=== PATIENT | female | born 1965 | race American Indian/Alaskan Native ===

== ENCOUNTER 2016-12-18 16:40 | Emergency (ER) | payer MEDICARE ==
--- NOTE | 2016-12-18 17:12 | Emergency Department Report ---
Chief Complaint: Dyspnea/Respdistress Stated Complaint: DIFF BREATHING / BILAT FEET/ANKLE SWELLING Time Seen by Provider: 12/18/16 17:08 - HPI History of Present Illness: 51 y/o female complain of shortness of breath x 1 week .pt state she been two hospital but been unable to stay due to long wait .pt complain of chest pain x 1 week .pt complain of n/v/d /.pt state she has fibromyalgia and unable to seat for prolong period of time. - ROS Review of Systems: per HPI - Exam Vital Signs: Vital Signs 12/18/16 16:50 Temperature 98.1 F Pulse Rate 90 Blood Pressure 162/83 O2 Sat by Pulse 100 Oximetry Physical Exam: GENERAL: The patient is well-developed and well-nourished.pt obese. Patient is in NAD. HENT: Normocephalic. Atraumatic. Patient has moist mucous membranes. Throat: No erythema, swelling or exudates. Ears:Tympanic membranes pearly ivory ,intact , and free of exudate and erythema . EYES: Extraocular motions are intact, PERRL NECK: Supple. No meningitic signs are noted. There is no adenopathy noted. CHEST/LUNGS: Clear to auscultation bilaterally. No wheezing, rales or rhonchi noted. There is no respiratory distress noted. HEART/CARDIOVASCULAR: Regular rate and rhythm. Normal S1 S2. No murmurs, rubs , clicks, or gallops. ABDOMEN: Abdomen is soft, nontender.. Bowel sounds normoactive. There is no abdominal distention. Negative rebound tenderness. : Deferred. SKIN: There is no rash. There is no edema. There is no diaphoresis.Normal skin turgor NEURO: The patient is A&Ox3. The patient has no focal neurologic deficits. MUSCULOSKELETAL: There is no tenderness or deformity. There is no limitation range of motion. posture erect.Spine aligned,no deformities. PSYCH: Pt has appropriate mood and affect. MSE screening note: Focused history and physical exam performed. Due to findings the following was ordered: ED Disposition for MSE Condition: Stable
[2016-12-18 17:59] LABS: Basophils % (Auto) 0.7 % (0.0-1.8); Eosinophils % (Auto) 0.8 % (0.0-4.3); Hematocrit 41.8 % (30.3-42.9); Hemoglobin 13.8 gm/dl (10.1-14.3); Mean Corpuscular HGB Conc 33 % (30-34); Mean Corpuscular Hemoglobin 28 pg (28-32); Mean Corpuscular Volume 86 fl (79-97); Platelet Count 308 K/mm3 (140-440); Red Blood Count 4.88 M/mm3 (3.65-5.03); Red Cell Distribution Width 15.1 % (13.2-15.2); White Blood Count 12.4 K/mm3 (4.5-11.0)
[2016-12-18 18:09] LABS: INR 1.08 (0.87-1.13); Partial Thromboplastin Time 26.9 Sec. (24.2-36.6)
[2016-12-18 18:11] LABS: Anion Gap 17 mmol/L; BUN/Creatinine Ratio 17.14; Blood Urea Nitrogen 12 mg/dL (7-17); Calcium 9.2 mg/dL (8.4-10.2); Carbon Dioxide 29 mmol/L (22-30); Chloride 99.1 mmol/L (98-107); Glucose 76 mg/dL (65-100); Potassium 3.5 mmol/L (3.6-5.0); Sodium 142 mmol/L (137-145)
[2016-12-18 18:14] LABS: Creatine Kinase 224 units/L (30-135); Creatine Kinase MB 2.3 ng/mL (0.0-4.0)
--- NOTE | 2016-12-18 20:33 | XRay Report ---
FINAL REPORT PROCEDURE: Chest. TECHNIQUE: Frontal and lateral views. HISTORY: Dyspnea. COMPARISON: No prior studies are available for comparison. FINDINGS: The heart and mediastinum appear normal. There is mild tortuosity of the thoracic aorta. The lungs are clear and well expanded. There are no pleural effusions. The soft tissues and regional skeleton are unremarkable. IMPRESSION: No evidence of acute disease.
[2016-12-18] MEDS ORDERED: PERCOCET 5/325 PO ONE (23:35)
--- NOTE | 2016-12-18 23:56 | Emergency Department Report ---
ED Shortness of Breath HPI - General Chief Complaint: Dyspnea/Respdistress Stated Complaint: DIFF BREATHING / BILAT FEET/ANKLE SWELLING Time Seen by Provider: 12/18/16 23:17 Source: patient Mode of arrival: Ambulatory Limitations: No Limitations - History of Present Illness Initial Comments: 51-year-old obese female with a past medical history of fibromyalgia, asthma, diabetes, and hypertension presents to the hospital complaints of cough and shortness of breath for the past 2 weeks. Patient complains of cough but is primarily dry and occasionally productive of white sputum. She reports intermittent episodes of wheezing similar to bronchitis infection the past. She is using a old inhaler with some mild improvement. Dyspnea worse when supine and patient wakes up in the middle night short of breath and her family reports that she seems to start breathing at nighttime. Patient only walk several feet before she feels short of breath and needs to sit down. She complains of intermittent pain across her chest that is aching and sore. Pain with palpation, movement, and cough. No reports of fever. Patient states she has gained 60 pounds in the last 6 months and reports swelling to lower extremities. Patient has attempted to be seen at 3-4 ED since symptom onset but left due to weight. She saw a primary care doctor as well recommended that she return to the ER for evaluation. Patient states that a sleep study has been recommended to her in the past but she never followed up to obtain one. She denies isolated calf tenderness, recent travel, or history of PE/DVT. - Related Data Previous Rx's Medication Instructions Recorded Last Taken Type ALBUTEROL Inhaler [ProAir HFA 2 puff IH QID PRN #1 inha 12/19/16 Unknown Rx Inhaler] ALPRAZolam [Xanax TAB] 1 mg PO BID PRN #14 tablet 12/19/16 Unknown Rx Azithromycin [Zithromax Z-KI] 1 dose PO DAILY 5 Days 12/19/16 Unknown Rx Duloxetine HCl [Cymbalta] 60 mg PO QDAY #30 capsule. 12/19/16 Unknown Rx Lisinopril [Zestril TAB] 10 mg PO QDAY #30 tablet 12/19/16 Unknown Rx Oxycodone HCl/Acetaminophen 1 each PO Q6HR PRN #20 tablet 12/19/16 Unknown Rx [Percocet 10/325 mg] amLODIPine [Norvasc] 10 mg PO DAILY #30 tablet 12/19/16 Unknown Rx metFORMIN [Glucophage] 500 mg PO BID #60 tablet 12/19/16 Unknown Rx Allergies Allergy/AdvReac Type Severity Reaction Status Date / Time morphine AdvReac Headache Verified 08/20/15 23:01 ED Review of Systems ROS: Stated complaint: DIFF BREATHING / BILAT FEET/ANKLE SWELLING Other details as noted in HPI Comment: All other systems reviewed and negative Other: Constitutional: No fevers chills Eyes: No eye pain visual changes or discharge ENT: No ear pain or throat pain Neck: Denies pain Respiratory: as per hpi Cardiovascular:as per hpi GI: Denies abdominal pain, nausea, vomiting, diarrhea, constipation, melena hematochezia : Denies dysuria, urinary frequency, or urgency Musculoskeletal: Denies back pain, joint swelling Skin: Denies rash, lesions, erythema Neurologic: Denies headache, numbness, weakness Psychiatric: Denies suicidal ideation, hallucinations Hematological/lymphatic: Denies easy bruising, lymphadenopathy ED Past Medical Hx - Past Medical History Hx Hypertension: Yes Hx Diabetes: Yes Hx Arthritis: Yes Hx Asthma: Yes Additional medical history: Fibromyalgia - Surgical History Hx Cholecystectomy: Yes Additional Surgical History: x3, HYST - Social History Smoking Status: Current Every Day Smoker Substance Use Type: None - Medications Home Medications: Home Medications Medication Instructions Recorded Confirmed Last Taken Type ALBUTEROL Inhaler [ProAir HFA 2 puff IH QID PRN #1 inha 12/19/16 Unknown Rx Inhaler] ALPRAZolam [Xanax TAB] 1 mg PO BID PRN #14 tablet 12/19/16 Unknown Rx Azithromycin [Zithromax Z-KI] 1 dose PO DAILY 5 Days 12/19/16 Unknown Rx Duloxetine HCl [Cymbalta] 60 mg PO QDAY #30 capsule. 12/19/16 Unknown Rx Lisinopril [Zestril TAB] 10 mg PO QDAY #30 tablet 12/19/16 Unknown Rx Oxycodone HCl/Acetaminophen 1 each PO Q6HR PRN #20 tablet 12/19/16 Unknown Rx [Percocet 10/325 mg] amLODIPine [Norvasc] 10 mg PO DAILY #30 tablet 12/19/16 Unknown Rx metFORMIN [Glucophage] 500 mg PO BID #60 tablet 12/19/16 Unknown Rx ED Physical Exam - General Limitations: No Limitations - Other Other exam information: General: No limitations, patient is alert in no acute distress Head exam: Atraumatic, normocephalic Eyes exam: Normal appearance, pupils equal reactive to light, extraocular movements intact ENT: Moist mucous membrane, normal oropharynx Neck exam: Normal inspection, full range of motion, no meningismus nontender Respiratory exam: Clear to auscultation bilateral, no wheezes, rales, crackles, diminished bilateral Cardiovascular: Normal rate and rhythm, anterior chest wall tenderness Abdomen: Soft, nondistended, and nontender, with normal bowel sounds, no rebound, or guarding Extremity: Full range of motion normal inspection no deformity, no calf tenderness or edema noted, minimal trace pedal edema Back: Normal Inspection, full range of motion, no tenderness Neurologic: Alert, oriented x3, cranial nerves intact, no motor or sensory deficit Psychiatric: normal affect, normal mood Skin: Warm, dry, intact ED Course Vital Signs 12/18/16 12/18/16 12/19/16 16:50 23:34 00:14 Temperature 98.1 F Pulse Rate 90 Pulse Rate [ 81 Posterior Bilateral Throughout] Respiratory Rate Respiratory 16 Rate [Posterior Bilateral Throughout] Blood Pressure 162/83 Blood Pressure [Left] O2 Sat by Pulse 100 97 Oximetry 12/19/16 12/19/16 00:30 02:16 Temperature Pulse Rate 75 Pulse Rate [ 72 Posterior Bilateral Throughout] Respiratory 19 Rate Respiratory 31 H Rate [Posterior Bilateral Throughout] Blood Pressure Blood Pressure 100/89 [Left] O2 Sat by Pulse 97 Oximetry - Reevaluation(s) Reevaluation #1: 12/19/16 00:35 peak flow unchanged before and after duoneb and remained in the 200's ED Medical Decision Making - Lab Data Result diagrams: 12/18/16 17:37 12/18/16 17:37 Lab Results 12/18/16 12/18/16 12/18/16 Range/Units 17:37 17:37 17:37 WBC 12.4 H (4.5-11.0) K/mm3 RBC 4.88 (3.65-5.03) M/mm3 Hgb 13.8 (10.1-14.3) gm/dl Hct 41.8 (30.3-42.9) % MCV 86 (79-97) fl MCH 28 (28-32) pg MCHC 33 (30-34) % RDW 15.1 (13.2-15.2) % Plt Count 308 (140-440) K/mm3 Lymph % (Auto) 23.5 (13.4-35.0) % [place] % (Auto) 8.8 H (0.0-7.3) % Eos % (Auto) 0.8 (0.0-4.3) % Baso % (Auto) 0.7 (0.0-1.8) % Lymph # 2.9 (1.2-5.4) K/mm3 [place] # 1.1 H (0.0-0.8) K/mm3 Eos # 0.1 (0.0-0.4) K/mm3 Baso # 0.1 (0.0-0.1) K/mm3 Seg Neutrophils % 66.2 (40.0-70.0) % Seg Neutrophils # 8.2 H (1.8-7.7) K/mm3 PT 13.9 (12.2-14.9) Sec. INR 1.08 (0.87-1.13) APTT 26.9 (24.2-36.6) Sec. D-Dimer (0-234) ng/mlDDU Sodium 142 (137-145) mmol/L Potassium 3.5 L (3.6-5.0) mmol/L Chloride 99.1 (98-107) mmol/L Carbon Dioxide 29 (22-30) mmol/L Anion Gap 17 mmol/L BUN 12 (7-17) mg/dL Creatinine 0.7 (0.7-1.2) mg/dL Estimated GFR > 60 ml/min BUN/Creatinine Ratio 17.14 % Glucose 76 (65-100) mg/dL Calcium 9.2 (8.4-10.2) mg/dL Total Creatine Kinase (30-135) units/L CK-MB (CK-2) (0.0-4.0) ng/mL CK-MB (CK-2) Rel Index (0-4) Troponin T (0.00-0.029) ng/mL NT-Pro-B Natriuret Pep (0-900) pg/mL 12/18/16 12/18/16 12/18/16 Range/Units 17:37 17:37 22:14 WBC (4.5-11.0) K/mm3 RBC (3.65-5.03) M/mm3 Hgb (10.1-14.3) gm/dl Hct (30.3-42.9) % MCV (79-97) fl MCH (28-32) pg MCHC (30-34) % RDW (13.2-15.2) % Plt Count (140-440) K/mm3 Lymph % (Auto) (13.4-35.0) % [place] % (Auto) (0.0-7.3) % Eos % (Auto) (0.0-4.3) % Baso % (Auto) (0.0-1.8) % Lymph # (1.2-5.4) K/mm3 [place] # (0.0-0.8) K/mm3 Eos # (0.0-0.4) K/mm3 Baso # (0.0-0.1) K/mm3 Seg Neutrophils % (40.0-70.0) % Seg Neutrophils # (1.8-7.7) K/mm3 PT (12.2-14.9) Sec. INR (0.87-1.13) APTT (24.2-36.6) Sec. D-Dimer 141.20 (0-234) ng/mlDDU Sodium (137-145) mmol/L Potassium (3.6-5.0) mmol/L Chloride (98-107) mmol/L Carbon Dioxide (22-30) mmol/L Anion Gap mmol/L BUN (7-17) mg/dL Creatinine (0.7-1.2) mg/dL Estimated GFR ml/min BUN/Creatinine Ratio % Glucose (65-100) mg/dL Calcium (8.4-10.2) mg/dL Total Creatine Kinase 224 H (30-135) units/L CK-MB (CK-2) 2.3 (0.0-4.0) ng/mL CK-MB (CK-2) Rel Index 1.0 (0-4) Troponin T < 0.010 < 0.010 (0.00-0.029) ng/mL NT-Pro-B Natriuret Pep 62.26 (0-900) pg/mL - EKG Data -: EKG Interpreted by Me (normal sinus rhythm rate [address]-T abnormalities) - EKG Data When compared to previous EKG there are: previous EKG unavailable - Radiology Data Radiology results: report reviewed (chest x-ray: No acute finding) - Medical Decision Making At this time no specific cause of dyspnea has been identified. BNP is negative , EKG is normal with negative initial cardiac enzymes, BNP is negative, d-dimer is negative, patient does not have wheezing and does not have any change in peak flow pre-and post duo neb treatment. It is possible that patient is suffering for sleep apnea and obesity hypoventilation syndrome. Patient refused for the ABG was attempted after filtered by respiratory therapist. Have not identified an acute cause of shortness of breath requiring admission today. I will treat empirically for bronchitis with albuterol inhaler since patient reports wheezing and azithromycin suspension reports persistent cough for 2 weeks. I stressed that patient needs further close outpatient follow-up and further testing to rule out sleep apnea and other pulmonary issues. Patient will receive a one-month supply of her current medication per her request. PO K given for mild hypokalemia - Differential Diagnosis PE, sleep apnea, CHF, [place], unstable angina, bronchitis, pneumonia Critical Care Time: No Critical care attestation.: If time is entered above; I have spent that time in minutes in the direct care of this critically ill patient, excluding procedure time. ED Disposition Clinical Impression: Obesity Qualifiers: Obesity type: unspecified obesity type Obesity severity: morbid Qualified Code( s): E66.01 - Morbid (severe) obesity due to excess calories Dyspnea Qualifiers: Dyspnea type: unspecified Qualified Code(s): R06.00 - Dyspnea, unspecified Acute bronchitis Qualifiers: Bronchitis organism: unspecified organism Qualified Code(s): J20.9 - Acute bronchitis, unspecified Disposition: DISCHARGED TO HOME OR SELFCARE Is pt being admited?: No Does the pt Need Aspirin: No Condition: Stable Instructions: Acute Bronchitis (ED) Additional Instructions: Take the medication as prescribed. Cause shortness of breath not identified this time it is likely that you have sleep apnea. You will need further outpatient evaluation. I have included follow-up for primary care doctor, primary care clinic, and a lung specialist. Please return if symptoms worsen. Prescriptions: ALBUTEROL Inhaler [ProAir HFA Inhaler] 2 puff IH QID PRN #1 inha PRN Reason: Shortness Of Breath ALPRAZolam [Xanax TAB] 1 mg PO BID PRN #14 tablet PRN Reason: Pain Azithromycin [Zithromax Z-KI] 1 dose PO DAILY 5 Days Duloxetine HCl [Cymbalta] 60 mg PO QDAY #30 capsule. Lisinopril [Zestril TAB] 10 mg PO QDAY #30 tablet Oxycodone HCl/Acetaminophen [Percocet 10/325 mg] 1 each PO Q6HR PRN #20 tablet PRN Reason: Pain amLODIPine [Norvasc] 10 mg PO DAILY #30 tablet metFORMIN [Glucophage] 500 mg PO BID #60 tablet Referrals: DUANE KAUR MD [Staff Physician] - 3-5 Days (Primary doctor) [facility] [Provider Group] - 3-5 Days (primary care clinic) ANDRÉS MELISSA MD [Staff Physician] - 3-5 Days (lung doctor ) Time of Disposition: 02:20
[2016-12-19] MEDS ORDERED: DUONEB 0.5 MG-3 MG/3 ML SOLN IH ONE (00:03)
[2016-12-19 02:17] VITALS: BP 100/89
[2016-12-19] MEDS ORDERED: K-DUR PO ONE (02:27)
== END 2016-12-19 02:45 | disposition home or self-care (01) ==
LOC: ED 16:40
DX: E66.01 Morbid (severe) obesity due to excess calories (principal); J20.9 Acute bronchitis, unspecified; R06.00 Dyspnea, unspecified; I10 Essential (primary) hypertension; E11.9 Type 2 diabetes mellitus without complications; M19.90 Unspecified osteoarthritis, unspecified site; J45.909 Unspecified asthma, uncomplicated; F17.200 Nicotine dependence, unspecified, uncomplicated; Z90.49 Acquired absence of other specified parts of digestive tract; Z90.710 Acquired absence of both cervix and uterus; Z88.6 Allergy status to analgesic agent
CPT/HCPCS: 36415; 71020; 80048; 82550; 82553; 83880; 84484; 85025; 85379; 85610; 85730; 93005; 93010; 94640

== ENCOUNTER 2018-05-07 01:37 | Emergency (ER) | payer MEDICARE ==
[2018-05-07] MEDS ORDERED: NACL 0.9% 1000 ML 1,000 ML IV ONE ×2 (02:05→12:34)
[2018-05-07 02:31] LABS: Basophils # (Auto) 0.1 K/mm3 (0.0-0.1); Basophils % (Auto) 0.5 % (0.0-1.8); Eosinophils % (Auto) 0.2 % (0.0-4.3); Hematocrit 40.1 % (30.3-42.9); Lymphocytes # (Auto) 1.7 K/mm3 (1.2-5.4); Mean Corpuscular HGB Conc 32 % (30-34); Mean Corpuscular Hemoglobin 27 pg (28-32); Mean Corpuscular Volume 85 fl (79-97); Monocytes # (Auto) 1.1 K/mm3 (0.0-0.8); Monocytes % (Auto) 7.6 % (0.0-7.3); Platelet Count 265 K/mm3 (140-440); Red Blood Count 4.73 M/mm3 (3.65-5.03)
[2018-05-07 02:39] LABS: INR 1.09 (0.87-1.13)
[2018-05-07 02:51] LABS: Alanine Aminotransferase 8 units/L (7-56); Albumin 3.8 g/dL (3.9-5); BUN/Creatinine Ratio 14; Blood Urea Nitrogen 7 mg/dL (7-17); Calcium 9.1 mg/dL (8.4-10.2); Hemolysis Index 2; Lipase 22 units/L (13-60)
[2018-05-07] MEDS ORDERED: ZOFRAN IV ONE (08:02)
[2018-05-07] MEDS ORDERED: PEPCID IV ONE (08:02)
[2018-05-07] MEDS ORDERED: NORCO 5/325 PO ONE (08:05)
[2018-05-07] MEDS ORDERED: K-DUR PO ONE (08:21)
--- NOTE | 2018-05-07 08:21 | Emergency Department Report ---
ED Abdominal Pain HPI - General Chief Complaint: GI Bleed Stated Complaint: ABD PAIN Time Seen by Provider: 05/07/18 07:49 Source: patient, EMS Mode of arrival: Wheelchair Limitations: Physical Limitation - History of Present Illness Initial Comments: 52-year-old female with asthma, morbid obesity, arthritis, asthma, diabetes, hypertension, cholecystectomy, , and hysterectomy presents to [facility] complaining of abdominal pain, nausea and vomiting and black hard stool. Patient developed nausea vomiting 3 since yesterday. Denies hematochezia or coffee ground emesis. After vomiting felt like something "burst " and has had a constant left upper quadrant burning pain since. Patient has chronic right lower quadrant pain lateral to her hysterectomy scar and states that she takes about 3-1/2 that he packs a day (50 goodies powders q 2 weeks). Patient also states has new swelling to this area. Severity scale (0 -10): 6 - Related Data Previous Rx's Medication Instructions Recorded Last Taken Type ALBUTEROL Inhaler [ProAir HFA 2 puff IH QID PRN #1 inha 12/19/16 Unknown Rx Inhaler] ALPRAZolam [Xanax TAB] 1 mg PO BID PRN #14 tablet 12/19/16 Unknown Rx Azithromycin [Zithromax Z-KI] 1 dose PO DAILY 5 Days tab 12/19/16 Unknown Rx Duloxetine HCl [Cymbalta] 60 mg PO QDAY #30 capsule. 12/19/16 Unknown Rx Lisinopril [Zestril TAB] 10 mg PO QDAY #30 tablet 12/19/16 Unknown Rx Oxycodone HCl/Acetaminophen 1 each PO Q6HR PRN #20 tablet 12/19/16 Unknown Rx [Percocet 10/325 mg] amLODIPine [Norvasc] 10 mg PO DAILY #30 tablet 12/19/16 Unknown Rx metFORMIN [Glucophage] 500 mg PO BID #60 tablet 12/19/16 Unknown Rx Docusate Sodium [Colace] 100 mg PO BID PRN #20 capsule 05/07/18 Unknown Rx Famotidine [Pepcid] 20 mg PO BID #20 tablet 05/07/18 Unknown Rx Ibuprofen [Motrin] 600 mg PO Q8H PRN #20 tablet 05/07/18 Unknown Rx Ondansetron [Zofran Odt] 4 mg PO Q8HR #20 tab.rapdis 05/07/18 Unknown Rx Allergies Allergy/AdvReac Type Severity Reaction Status Date / Time morphine AdvReac Headache Verified 08/20/15 23:01 ED Review of Systems ROS: Stated complaint: ABD PAIN Other details as noted in HPI Comment: All other systems reviewed and negative ED Past Medical Hx - Past Medical History Previous Medical History?: Yes Hx Hypertension: Yes Hx Diabetes: Yes Hx Arthritis: Yes Hx Asthma: Yes Additional medical history: Fibromyalgia - Surgical History Past Surgical History?: Yes Hx Cholecystectomy: Yes Additional Surgical History: x3, HYST - Social History Smoking Status: Current Every Day Smoker Substance Use Type: None - Medications Home Medications: Home Medications Medication Instructions Recorded Confirmed Last Taken Type ALBUTEROL Inhaler [ProAir HFA 2 puff IH QID PRN #1 inha 12/19/16 Unknown Rx Inhaler] ALPRAZolam [Xanax TAB] 1 mg PO BID PRN #14 tablet 12/19/16 Unknown Rx Azithromycin [Zithromax Z-KI] 1 dose PO DAILY 5 Days tab 12/19/16 Unknown Rx Duloxetine HCl [Cymbalta] 60 mg PO QDAY #30 capsule. 12/19/16 Unknown Rx Lisinopril [Zestril TAB] 10 mg PO QDAY #30 tablet 12/19/16 Unknown Rx Oxycodone HCl/Acetaminophen 1 each PO Q6HR PRN #20 tablet 12/19/16 Unknown Rx [Percocet 10/325 mg] amLODIPine [Norvasc] 10 mg PO DAILY #30 tablet 12/19/16 Unknown Rx metFORMIN [Glucophage] 500 mg PO BID #60 tablet 12/19/16 Unknown Rx Docusate Sodium [Colace] 100 mg PO BID PRN #20 capsule 05/07/18 Unknown Rx Famotidine [Pepcid] 20 mg PO BID #20 tablet 05/07/18 Unknown Rx Ibuprofen [Motrin] 600 mg PO Q8H PRN #20 tablet 05/07/18 Unknown Rx Ondansetron [Zofran Odt] 4 mg PO Q8HR #20 tab.rapdis 05/07/18 Unknown Rx ED Physical Exam - General Limitations: Physical Limitation - Other Other exam information: General: No limitations, patient is alert in no acute distress Head exam: Atraumatic, normocephalic Eyes exam: Normal appearance, no icteric sclera ENT: Moist mucous membrane, normal oropharynx Neck exam: Normal inspection, full range of motion, no meningismus nontender Respiratory exam: Clear to auscultation bilateral, no wheezes, rales, crackles Cardiovascular: Normal rate and rhythm, normal heart sounds Abdomen: Soft, obese, epigastric tenderness, midline vertical hysterectomy scar with tenderness and mild swelling to the right pannus without erythema or warmth. Rectal: Light brown stool guaiac positive, no gross blood or melena Extremity: Full range of motion normal inspection no deformity Back: Normal Inspection, full range of motion, no tenderness Neurologic: Alert, oriented x3, cranial nerves intact, no motor or sensory deficit Psychiatric: normal affect, normal mood Skin: Warm, dry, intact ED Course Vital Signs 05/07/18 05/07/18 05/07/18 02:00 07:46 07:55 Temperature 99.0 F 98.9 F Pulse Rate 97 H 98 H Respiratory 18 14 14 Rate Blood Pressure 153/60 Blood Pressure 147/80 [Left] O2 Sat by Pulse 96 96 95 Oximetry 05/07/18 05/07/18 05/07/18 08:00 08:15 08:31 Temperature Pulse Rate 90 90 85 Respiratory 26 H 33 H 19 Rate Blood Pressure 135/63 140/68 140/68 Blood Pressure [Left] O2 Sat by Pulse 93 94 98 Oximetry 05/07/18 05/07/18 05/07/18 08:45 11:33 12:06 Temperature Pulse Rate 92 H Respiratory 20 20 Rate Blood Pressure 140/68 140/68 Blood Pressure [Left] O2 Sat by Pulse 89 87 96 Oximetry - Reevaluation(s) Reevaluation #1: 05/07/18 13:32 Pt tolerating po prior to d/c - Consultations Consultation #1: 05/07/18 10:59 case d/w Dr griffith, request pt to be placed flat with ice pack on lower abd and she will come to attempt hernia reduction. 05/07/18 13:31 Dr Griffith reduced hernia ED Medical Decision Making - Lab Data Result diagrams: 05/07/18 02:13 05/07/18 02:13 Lab Results 05/07/18 05/07/18 05/07/18 Range/Units 02:13 02:13 02:13 WBC 14.2 H (4.5-11.0) K/mm3 RBC 4.73 (3.65-5.03) M/mm3 Hgb 13.0 (10.1-14.3) gm/dl Hct 40.1 (30.3-42.9) % MCV 85 (79-97) fl MCH 27 L (28-32) pg MCHC 32 (30-34) % RDW 14.0 (13.2-15.2) % Plt Count 265 (140-440) K/mm3 Lymph % (Auto) 12.0 L (13.4-35.0) % [place] % (Auto) 7.6 H (0.0-7.3) % Eos % (Auto) 0.2 (0.0-4.3) % Baso % (Auto) 0.5 (0.0-1.8) % Lymph # 1.7 (1.2-5.4) K/mm3 [place] # 1.1 H (0.0-0.8) K/mm3 Eos # 0.0 (0.0-0.4) K/mm3 Baso # 0.1 (0.0-0.1) K/mm3 Seg Neutrophils % 79.7 H (40.0-70.0) % Seg Neutrophils # 11.3 H (1.8-7.7) K/mm3 PT 14.7 (12.2-14.9) Sec. INR 1.09 (0.87-1.13) APTT 29.0 (24.2-36.6) Sec. Sodium 139 (137-145) mmol/L Potassium 3.4 L (3.6-5.0) mmol/L Chloride 98.5 (98-107) mmol/L Carbon Dioxide 30 (22-30) mmol/L Anion Gap 14 mmol/L BUN 7 (7-17) mg/dL Creatinine 0.5 L (0.7-1.2) mg/dL Estimated GFR > 60 ml/min BUN/Creatinine Ratio 14 % Glucose 102 H (65-100) mg/dL Calcium 9.1 (8.4-10.2) mg/dL Total Bilirubin 0.50 (0.1-1.2) mg/dL AST 13 (5-40) units/L ALT 8 (7-56) units/L Alkaline Phosphatase 59 (35-129) units/L Total Protein 6.7 (6.3-8.2) g/dL Albumin 3.8 L (3.9-5) g/dL Albumin/Globulin Ratio 1.3 % Lipase 22 (13-60) units/L Blood Type Antibody Screen 05/07/18 Range/Units 02:13 WBC (4.5-11.0) K/mm3 RBC (3.65-5.03) M/mm3 Hgb (10.1-14.3) gm/dl Hct (30.3-42.9) % MCV (79-97) fl MCH (28-32) pg MCHC (30-34) % RDW (13.2-15.2) % Plt Count (140-440) K/mm3 Lymph % (Auto) (13.4-35.0) % [place] % (Auto) (0.0-7.3) % Eos % (Auto) (0.0-4.3) % Baso % (Auto) (0.0-1.8) % Lymph # (1.2-5.4) K/mm3 [place] # (0.0-0.8) K/mm3 Eos # (0.0-0.4) K/mm3 Baso # (0.0-0.1) K/mm3 Seg Neutrophils % (40.0-70.0) % Seg Neutrophils # (1.8-7.7) K/mm3 PT (12.2-14.9) Sec. INR (0.87-1.13) APTT (24.2-36.6) Sec. Sodium (137-145) mmol/L Potassium (3.6-5.0) mmol/L Chloride (98-107) mmol/L Carbon Dioxide (22-30) mmol/L Anion Gap mmol/L BUN (7-17) mg/dL Creatinine (0.7-1.2) mg/dL Estimated GFR ml/min BUN/Creatinine Ratio % Glucose (65-100) mg/dL Calcium (8.4-10.2) mg/dL Total Bilirubin (0.1-1.2) mg/dL AST (5-40) units/L ALT (7-56) units/L Alkaline Phosphatase (35-129) units/L Total Protein (6.3-8.2) g/dL Albumin (3.9-5) g/dL Albumin/Globulin Ratio % Lipase (13-60) units/L Blood Type AB POSITIVE Antibody Screen Negative - EKG Data -: EKG Interpreted by Me EKG shows normal: sinus rhythm, axis (qrs 34), QRS complexes (qrsd 101), ST-T waves (no stemi/t wave) Rate: normal (95) - EKG Data When compared to previous EKG there are: no significant change (12/18/16) - Radiology Data Radiology results: report reviewed ct a/p with IV contrast CONCLUSION: 1. Infraumbilical anterior abdominal wall hernia along the pannus again noted containing fat and small bowel with new stranding/fluid and bowel wall thickening, suggesting inflammation/slight strangulation. Please correlate. 2. Various other incidental findings as "neyda mesentery", stable cholecystectomy, prominent/slightly enlarged liver, hysterectomy and multilevel spinal degenerative changes, amongst others, as detailed above. I phoned the above results to Dr. Mora in the ER, 9:45 AM, 05/07/2018 - Medical Decision Making Abdominal pain with infraumbilical hernia Hernia reduced by surgery although difficult as per surgeon Tolerating by mouth liquids and soft diet recommended by surgery Bariatric surgery and follow-up recommended with Dr. Horn as per general surgery Guaiac positive brown stool without melena, hematochezia, or anemia. (Patient complains of black stool but states she's been vomiting bile therefore upper GI bleed less likely) Patient counseled on not taking excessive Goody powders Motrin when necessary pain and Zofran when necessary nausea Mild hypokalemia treated with by mouth potassium Outpatient follow-up with Dr. Horn and GI - Differential Diagnosis hernia, gastroenteritis, obstruction, chronic pain, GI bleed Critical Care Time: No Critical care attestation.: If time is entered above; I have spent that time in minutes in the direct care of this critically ill patient, excluding procedure time. ED Disposition Clinical Impression: Reducible bulge of abdominal wall, Obesity, Guaiac positive stools, Hypokalemia Disposition: - TO HOME OR SELFCARE Is pt being admited?: No Does the pt Need Aspirin: No Condition: Stable Instructions: Umbilical Hernia (ED), Rectal Bleeding (ED) Additional Instructions: Take the medication as prescribed. Do not take more goodies powders then advised. Do not take Goody's powders and Motrin take either one or the other. Continued to monitor stool for acute changes as per your discharge instructions. Follow up with primary care doctor and bariatric surgeon for further management and surgery to prevent recurrent hernia buldge. Prescriptions: Docusate Sodium [Colace] 100 mg PO BID PRN #20 capsule PRN Reason: Constipation Famotidine [Pepcid] 20 mg PO BID #20 tablet Ibuprofen [Motrin] 600 mg PO Q8H PRN #20 tablet PRN Reason: Pain Ondansetron [Zofran Odt] 4 mg PO Q8HR #20 tab.rapdis Referrals: ESTRADA GRANT PA [Primary Care Provider] - 3-5 Days JIMMY SANDERS MD [Staff Physician] - 3-5 Days (GI doctor) MARINO HORN MD [Staff Physician] - 3-5 Days (surgeon ) Forms: Accompanied Note Time of Disposition: 13:39
[2018-05-07] MEDS ORDERED: NACL 0.9% 1000 ML 1,000 ML ONE (08:25)
--- NOTE | 2018-05-07 10:24 | Cat Scan Report ---
CT ABDOMEN AND PELVIS WITH CONTRAST INDICATION: Epigastric, left suprapubic pain. COMPARISON: 07/10/2010 CT. FINDINGS: Abdomen and pelvis CT performed following intravenous administration of 100 cc of Omnipaque 300. LUNG BASES: Slighty prominent pericardial fat pads. No effusions. Mild nonspecific distal esophageal wall prominence/thickening, not excluded for gastroesophageal reflux and/or hiatal hernia, amongst others. ABDOMEN: Stable few tiny hepatic dome benign calcifications, axial series 2, images 14-17. Right hepatic lobe 18.2 cm in midclavicular length. No focal suspicious lesions or biliary dilatation. Stable cholecystectomy clips. Spleen, pancreas, adrenals, aorta, IVC and the kidneys within normal limits. No ascites. Few small, subcentimeter mesenteric and retroperitoneal lymph nodes noted. Subtle haziness to the mesenteric root on the right also now seen as on axial series 2, images 91-105 with lymph nodes measuring up to approximately 1 cm, axial image 99. Nonopacified GI tract evaluation limited. Stomach and proximal small bowel is decompressed as also the distal small bowel in the right lower quadrant. However, few left hemiabdomen mid small bowel loops fluid filled with caliber up to 3.5 cm, axial image 110, series 2 in the left lower quadrant. Infraumbilical midline incision noted, again with a bowel-containing hernia in the pannus that however now demonstrates diffuse fat stranding/mild fluid inferiorly as on axial image 181, series 2, amongst others. Approximately 10 cm long nonobstructive small bowel within this hernia nondistended, though suggests diffuse wall thickening. Fat-containing umbilical hernias also again noted with a transverse neck of approximately 3 cm as on axial image 129, series 2. PELVIS: Uterus again surgically absent with few small phleboliths. Mild rectal stool. Unremarkable urinary bladder. No significant pelvic free fluid or adenopathy. Multilevel spinal degenerative changes, including prominent lower thoracic right-sided osteophytes. Mid to lower lumbar facet arthropathy. Bilateral SI joint degenerative changes with vacuum phenomenon and mild iliac aspect sclerosis. Mild bilateral hip degenerative changes as well. CONCLUSION: 1. Infraumbilical anterior abdominal wall hernia along the pannus again noted containing fat and small bowel with new stranding/fluid and bowel wall thickening, suggesting inflammation/slight strangulation. Please correlate. 2. Various other incidental findings as "neyda mesentery", stable cholecystectomy, prominent/slightly enlarged liver, hysterectomy and multilevel spinal degenerative changes, amongst others, as detailed above. I phoned the above results to Dr. Mora in the ER, 9:45 AM, 05/07/2018. Thank you for the opportunity to participate in this patient's care.
[2018-05-07] MEDS ORDERED: DILAUDID IV ONE (12:34)
[2018-05-07] MEDS ORDERED: TORADOL IV ONE (13:11)
--- NOTE | 2018-05-07 13:51 | Consultation ---
History of Present Illness Consult date: 05/07/18 Reason for consult: abdominal pain Chief complaint: abd pain - History of present illness History of present illness: 52 yo F, morbidly obese, with hx of HTN and hysterectomy in the past presents to ER with c/o R sided lower abdominal pain near her old scar which started 1-2 days ago. She states the pain is sharp, does not radiate, and is an 8/10 in severity. She states she was in the bath and felt generalized pain in the abdomen which caused her to retch without emesis. She then felt a bulge in the right lower abdomen which she felt was new. No f/c, cp, sob. Last BM was 2 days ago. She is passing flatus. She has been having increasing trouble walking due to her weight. She has been unable to lose weight because she cannot exercise. She has known about this hernia since 2009 when she had the hysterectomy. She was supposed to follow up with bariatric surgery. Past History Past Medical History: hypertension, other (morbid obesity) Past Surgical History: , hysterectomy Social history: denies: smoking, alcohol abuse, prescription drug abuse Family history: no significant family history Medications and Allergies Allergies Allergy/AdvReac Type Severity Reaction Status Date / Time morphine AdvReac Headache Verified 08/20/15 23:01 Home Medications Medication Instructions Recorded Confirmed Last Taken Type ALBUTEROL Inhaler [ProAir HFA 2 puff IH QID PRN #1 inha 12/19/16 Unknown Rx Inhaler] ALPRAZolam [Xanax TAB] 1 mg PO BID PRN #14 tablet 12/19/16 Unknown Rx Azithromycin [Zithromax Z-KI] 1 dose PO DAILY 5 Days tab 12/19/16 Unknown Rx Duloxetine HCl [Cymbalta] 60 mg PO QDAY #30 capsule. 12/19/16 Unknown Rx Lisinopril [Zestril TAB] 10 mg PO QDAY #30 tablet 12/19/16 Unknown Rx Oxycodone HCl/Acetaminophen 1 each PO Q6HR PRN #20 tablet 12/19/16 Unknown Rx [Percocet 10/325 mg] amLODIPine [Norvasc] 10 mg PO DAILY #30 tablet 12/19/16 Unknown Rx metFORMIN [Glucophage] 500 mg PO BID #60 tablet 12/19/16 Unknown Rx Docusate Sodium [Colace] 100 mg PO BID PRN #20 capsule 05/07/18 Unknown Rx Famotidine [Pepcid] 20 mg PO BID #20 tablet 05/07/18 Unknown Rx Ibuprofen [Motrin] 600 mg PO Q8H PRN #20 tablet 05/07/18 Unknown Rx Ondansetron [Zofran Odt] 4 mg PO Q8HR #20 tab.rapdis 05/07/18 Unknown Rx Review of Systems All systems: negative (10 point ROS performed and negative except for that listed in HPI) Exam Vital Signs Temp Pulse Resp BP Pulse Ox 99.0 F 97 H 18 153/60 96 05/07/18 02:00 05/07/18 02:00 05/07/18 02:00 05/07/18 02:00 05/07/18 02:00 Narrative exam: Gen; AAOx3. NAD CV: S1, S2+ Resp: even and unlabored Abd: soft, ND, morbidly obese. Large pannus. Incisional hernia lower abdomen, soft, mildly TTP, no skin changes. Hernia reduced completely. Ext: no c/c/e Results - Labs 05/07/18 02:13 05/07/18 02:13 Abnormal lab results 05/07/18 05/07/18 Range/Units 02:13 02:13 WBC 14.2 H (4.5-11.0) K/mm3 MCH 27 L (28-32) pg Lymph % (Auto) 12.0 L (13.4-35.0) % [place] % (Auto) 7.6 H (0.0-7.3) % [place] # 1.1 H (0.0-0.8) K/mm3 Seg Neutrophils % 79.7 H (40.0-70.0) % Seg Neutrophils # 11.3 H (1.8-7.7) K/mm3 Potassium 3.4 L (3.6-5.0) mmol/L Creatinine 0.5 L (0.7-1.2) mg/dL Glucose 102 H (65-100) mg/dL Albumin 3.8 L (3.9-5) g/dL Diabetes panel 05/07/18 Range/Units 02:13 Sodium 139 (137-145) mmol/L Potassium 3.4 L (3.6-5.0) mmol/L Chloride 98.5 (98-107) mmol/L Carbon Dioxide 30 (22-30) mmol/L BUN 7 (7-17) mg/dL Creatinine 0.5 L (0.7-1.2) mg/dL Glucose 102 H (65-100) mg/dL Calcium 9.1 (8.4-10.2) mg/dL AST 13 (5-40) units/L ALT 8 (7-56) units/L Alkaline Phosphatase 59 (35-129) units/L Total Protein 6.7 (6.3-8.2) g/dL Albumin 3.8 L (3.9-5) g/dL Calcium panel 05/07/18 Range/Units 02:13 Calcium 9.1 (8.4-10.2) mg/dL Albumin 3.8 L (3.9-5) g/dL Pituitary panel 05/07/18 Range/Units 02:13 Sodium 139 (137-145) mmol/L Potassium 3.4 L (3.6-5.0) mmol/L Chloride 98.5 (98-107) mmol/L Carbon Dioxide 30 (22-30) mmol/L BUN 7 (7-17) mg/dL Creatinine 0.5 L (0.7-1.2) mg/dL Glucose 102 H (65-100) mg/dL Calcium 9.1 (8.4-10.2) mg/dL Adrenal panel 05/07/18 Range/Units 02:13 Sodium 139 (137-145) mmol/L Potassium 3.4 L (3.6-5.0) mmol/L Chloride 98.5 (98-107) mmol/L Carbon Dioxide 30 (22-30) mmol/L BUN 7 (7-17) mg/dL Creatinine 0.5 L (0.7-1.2) mg/dL Glucose 102 H (65-100) mg/dL Calcium 9.1 (8.4-10.2) mg/dL Total Bilirubin 0.50 (0.1-1.2) mg/dL AST 13 (5-40) units/L ALT 8 (7-56) units/L Alkaline Phosphatase 59 (35-129) units/L Total Protein 6.7 (6.3-8.2) g/dL Albumin 3.8 L (3.9-5) g/dL - Imaging CT scan - abdomen: report reviewed, image reviewed CT scan - pelvis: report reviewed, image reviewed Assessment and Plan 52 yo F with 1. incisional hernia containing bowel, reducible 2. morbid obesity Plan: 1. Hernia was reduced. The patient's pain improved after reduction. 2. clear liquids PO challenge 3. monitor patient for worsening symptoms in ER 4. may dc patient to home if she tolerates liquids and pain is controlled 5. Pt needs to follow up with bariatric surgery Dr. Horn as outpatient for evaluation for weight loss surgery 6. Pt to return to ER if abdominal pain worsens, if she has increasing nausea/ vomiting. D/W Dr. Mora Thank you for this consultation, please call with questions or concerns.
[2018-05-07 15:42] VITALS: BP 123/62
== END 2018-05-07 15:46 | disposition home or self-care (01) ==
LOC: ED 01:37
DX: E87.6 Hypokalemia (principal); R19.5 Other fecal abnormalities; R19.00 Intra-abdominal and pelvic swelling, mass and lump, unspecified site; I10 Essential (primary) hypertension; E11.9 Type 2 diabetes mellitus without complications; J45.909 Unspecified asthma, uncomplicated; F17.200 Nicotine dependence, unspecified, uncomplicated
CPT/HCPCS: 36415; 74177; 80053; 82271; 83690; 85025; 85610; 85730; 86850; 86900; 86901; 93005; 93010; 96361; 96374; 96375; 99285; J1170; J1885; J2405; J7030; Q9967